=== PATIENT | female | born 1980 | race Caucasian/White ===

== ENCOUNTER → 2016-09-17 | Outpatient (CLI) | payer OTHER ==
[2016-06-09 03:30] VITALS: BP 100/59
[2016-09-17 15:05] LABS: RHEUMATOID FACTOR NEGATIVE (NEGATIVE)
[2016-09-23 06:16] LABS: ANTI-NUCLEAR ANTIBODY TEST None Detected (None Detected)
== END ==
LOC: LAB 14:15
PROVIDERS: ATTEND Family Medicine
DX: M25.50 Pain in unspecified joint (principal); Z82.61 Family history of arthritis
CPT/HCPCS: 36415; 86308; 86430

== ENCOUNTER 2017-08-14 16:16 | Emergency (ER) | payer OTHER ==
[2017-08-14 16:23] VITALS: BMI 32.4
--- NOTE | 2017-08-14 19:59 | DR.GENAD ---
HPI - PCP Primary Care Physician: ARLEN ZAFAR - Complaint/Symptoms Chief Complaint Doctors Comments: 2 to 3 weeks of paresthesia both lower extremities. She has had these symptoms in both upper extremities also. She sees a neurologist in [place] and she has had the upper exts. EMGs and NCS done about 2 months ago. She has an upcoming neurology f/u in next 11 to 2 weeks. The C/P is non radiatin and there is no other symptoms associated with that. Another complais is swelling to are hands. Chief Complaint:: PT C/O SWELLING TO HER HANDS AND FEET AND HAVING, SPOTS IN HER VISION AND CP.. Self Treatment fo Chief Complaint: PT STATES " I HAVE A HX OF ANXIETY:,. - Nurses notes reviewed Nurses Notes Review: Yes - Source History Provided: Patient - Mode of Arrival Mode of Arrival: Ambulatory - Timing Onset of Chief Complaint: 08/13/17 PMH - PMH Past Medical History: Yes Past Medical History: Anxiety, Depression Past Medical History Comment: FIBRO, RESTLESSLEG, BIPOLAR, DEPRESSION, ANXIETY, Past Surgical History: Yes Surgical History: Appendectomy, Hysterectomy, Ortho Surgery Past Surgical History Comment: KNEE SURGERY , BLADDER - Family History History of Family Medical Conditions: Yes Family Medical History: Cancer, MS, Heart Failure, Hypertension - Social History Does patient currently use any type of tobacco product: Yes Have you used tobacco products in the last 12 months: Yes Type of Tobacco Use: Cigarettes How many years tobacco product used: 3 Does any household member use tobacco: No Alcohol Use: None Do you use any recreational Drugs:: No Lives With: Family Lives Where: Home - infectious screening In the last 2 months have you had wt loss of >10#?: NO Have you had fever, night sweats or hemotysis?: No Have you traveled outside the country in the last 6 months?: No Isolation: Standard ROS - Review of Systems Constitutional: No Symptoms Reported Eyes: No Symptoms Reported ENTM: No Symptoms Reported Respiratoy: No Symptoms Reported Cardiovascular: No Symptoms Reported Gastrointestinal/Abdominal: No Symptoms Reported Genitourinary: No Symptoms Reported Neurological: Tingling Musculoskeletal: No Symptoms Reported Integumentary: No Symptoms Reported Hematologic/Lymphatic: No Symptoms Reported Endocrine: No Symptoms Reported Psychiatric: No Symptoms Reported PE - Vital Signs Vitals: Temperature 97.6 F Pulse Rate 75 Respiratory Rate 18 Blood Pressure [Right Arm] 100/59 Blood Pressure 123/77 O2 Sat by Pulse Oximetry 100 - General Limitations: No Limitations General Appearance: Alert, In No Apparent Distress - Head Head Exam: Normal Inspection - Eyes Eye exam: Normal Appearance - ENT ENT Exam: Normal Exam - Neck Neck Exam: Normal Inspection - Chest Chest Inspection: Normal Inspection - Respiratory Respiratory Exam: Normal Lung Sounds Bilat - Cardiovascular Cardiovascular Exam: Regular Rate, Normal Rhythm, +S1, +S2 - Abdominal Exam Abdominal Exam: Normal Inspection, Normal Bowel Sounds, Soft - Extremities Extremities Exam: Normal Inspection, Full ROM - Back Back Exam: Normal Inspection - Neurologic Neurological Exam: Alert, Oriented X3 - Psychiatric Psychiatric Exam: Normal Affect, Normal Mood - Skin Skin Exam: Warm, Dry, Intact, Normal Color Course - Education/Counseling Education/Counseling: Patient, Family, Education, Counseling Educated On: Treatment, Diagnosis, Prognosis, Needs for Follow Up (She already is on Hyrocodone, max doses of Cymbalta and Neurontin. Barring surgical interventions i defer her to her neurology for follow up. ) ROR - Labs Reviewed Laboratory: Creatine Kinase 50 Units/L (26-192) 08/14/17 19:59 CK-MB (CK-2) < 1.0 ng/mL (0-4.0) 08/14/17 19:59 CK/CKMB % Calc 2.0 % (<4) 08/14/17 19:59 Troponin I < 0.02 ng/mL (0-1.5) 08/14/17 19:59 TSH 3rd Generation 0.711 uIU/mL (0.358-3.74) 08/14/17 19:59 - Diagnosis Discharge Problem: Paresthesia and pain of extremity - Discharge Plan Disposition: 01 HOME, SELF-CARE Condition: Stable - Follow ups/Referrals Follow ups/Referrals: GARY MCKINLEY [Primary Care Provider] - 3 days - Instructions
[2017-08-14 20:32] LABS: CREATINE KINASE 50 Units/L (26-192); CREATINE KINASE MB < 1.0 ng/mL (0-4.0); TROPONIN I < 0.02 ng/mL (0-1.5); TSH (3RD GENERATION) 0.711 uIU/mL (0.358-3.74)
[2017-08-14 21:33] VITALS: BP 124/79
== END 2017-08-14 21:32 | disposition home or self-care (01) ==
LOC: ER 16:36
DX: R20.2 Paresthesia of skin (principal)
CPT/HCPCS: 36415; 82550; 82553; 84443; 84484; 99282

== ENCOUNTER → 2017-09-11 | Outpatient (CLI) | payer OTHER ==
[2017-08-14 21:33] VITALS: BP 124/79
--- NOTE | 2017-09-11 15:00 | RAD ---
Examination: Left shoulder, three views History: Left shoulder pain Findings: There is no evidence for fracture, bone destruction or significant arthropathy. The soft ti ssues are unremarkable. Impression: No acute or significant findings. Reported By:
--- NOTE | 2017-09-11 15:01 | RAD ---
HISTORY: Left knee pain Study: Three views left knee Comparison: June 09, 2016 Findings: There is no acute fracture or dislocation. Three compression screws project over the tibial tuberosit y. There is no periprosthetic lucency to suggest acute or chronic hardware failure. There is no effus ion. IMPRESSION: Stable exam without acute bony radiographic abnormality Reported By:
--- NOTE | 2017-09-11 15:10 | RAD ---
HISTORY: Right hip pain Study: Three views right hip Comparison: August 27, 2015 Findings: There is no acute fracture or dislocation. No destructive osseous lesions are seen. No significant DJ D is noted. IMPRESSION: Negative right hip examination. Reported By:
== END ==
LOC: RAD 14:16
PROVIDERS: ATTEND Family Medicine
DX: M25.562 Pain in left knee (principal); M54.5 Low back pain
CPT/HCPCS: 73030; 73501; 73560

== ENCOUNTER 2017-10-01 19:01 | Emergency (ER) | payer OTHER ==
[2017-10-01 19:10] VITALS: BP 117/69; BMI 34.7
[2017-10-01] MEDS ORDERED: LR 1000 ML IV 1,000 ML IV ONE ×2 (19:16→19:36)
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
[2017-10-01 19:45] LABS: BILIRUBIN,URINE 1+ (NEGATIVE); BLOOD/HEMOGLOBIN,URINE 2+ (NEGATIVE); GLUCOSE, URINE NEGATIVE (NEGATIVE); KETONES,URINE 2+ (NEGATIVE); LEUKOCYTE ESTERASE ,URINE 3+ (NEGATIVE); NITRITES,URINE NEGATIVE (NEGATIVE); PROTEIN,URINE 2+ (NEGATIVE); UROBILINOGEN,URINE 2+ (NORMAL)
[2017-10-01 19:49] LABS: BASOPHILS # (AUTO) 0.1 X10^3/uL (0.0-0.1); BASOPHILS % (AUTO) 0.6 % (0.2-1.0); EOSINOPHILS # (AUTO) 0.1 x10^3/uL (0.0-0.2); EOSINOPHILS % (AUTO) 1.1 % (0.9-2.9); HEMATOCRIT 42.6 % (36.0-47.0); HEMOGLOBIN 15.1 g/dL (12.0-16.0); LYMPHOCYTES # (AUTO) 2.4 X10^3/uL (1.3-2.9); LYMPHOCYTES % (AUTO) 25.2 % (21.0-51.0); MEAN CORPUSCULAR HEMOGLOBIN 32.3 pg (27.0-34.0); MEAN CORPUSCULAR HGB CONC 35.5 g/dL (33.0-35.0); MEAN PLATELET VOLUME 10.2 fL (7.4-11.0); MONOCYTES # (AUTO) 0.8 x10^3/uL (0.3-0.8); MONOCYTES % (AUTO) 7.8 % (0.0-13.0); NEUTROPHILS # (AUTO) 6.3 x10^3/uL (2.2-4.8); NEUTROPHILS % (AUTO) 65.3 % (42.0-75.0); PLATELET COUNT 244 X10^3/uL (150.0-450.0); RED BLOOD COUNT 4.68 X10^6/uL (3.5-5.4); RED CELL DISTRIBUTION WIDTH 12.1 % (11.6-16.5); WHITE BLOOD COUNT 9.6 X10^3/uL (3.6-10.0)
[2017-10-01 19:51] LABS: APPEARANCE,URINE SLIGHTLY HAZY (CLEAR); BACTERIA,URINE 1+ /HPF (NEGATIVE); COLOR,URINE YELLOW (YELLOW); MUCUS,URINE FEW /HPF (NEGATIVE); SQUAMOUS EPITHELIAL CELL,UR FEW /HPF (NEGATIVE)
[2017-10-01 19:53] LABS: ALANINE AMINOTRANSFERASE 33 Units/L (12-78); ALBUMIN 4.6 g/dL (3.4-5.0); ALKALINE PHOSPHATASE 97 Units/L (46-116); ASPARTATE AMINO TRANSFERASE 19 Units/L (15-37); BLOOD UREA NITROGEN 15 mg/dL (7-18); CALCIUM 9.3 mg/dL (8.5-10.1); CARBON DIOXIDE 23.7 mmol/L (21-32); CHLORIDE 102 mmol/L (98-107); CREATININE 0.98 mg/dL (0.55-1.02); SODIUM 141 mmol/L (136-145); TOTAL PROTEIN 8.8 g/dL (6.4-8.2); eGFR BLACK RACES > 60 (>60); eGFR NON BLACK RACES > 60 (>60)
[2017-10-01] MEDS ORDERED: ZOFRAN INJ 4 MG VIAL IVP ONE (19:54)
[2017-10-01] MEDS ORDERED: ZOFRAN INJ 4 MG VIAL ONE (20:18)
[2017-10-01] MEDS ORDERED: BACTRIM DS TAB PO ONE ×2 (20:22→20:31)
== END 2017-10-01 20:34 | disposition home or self-care (01) ==
LOC: ER 19:12
DX: N30.01 Acute cystitis with hematuria (principal)
CPT/HCPCS: 36415; 72125; 72131; 80053; 81001; 82607; 82728; 82746; 82784; 83540; 83550; 84165; 84439; 84443; 85025; 85045; 85652; 86140; 86308; 86430; 87086; 87651; 96365; 96374; 99283; A4222; J2405; J7120

== ENCOUNTER → 2017-10-01 | Outpatient (CLI) | payer OTHER ==
[2017-10-01 15:17] LABS: BASOPHILS # (AUTO) 0.1 X10^3/uL (0.0-0.1); BASOPHILS % (AUTO) 0.7 % (0.2-1.0); EOSINOPHILS # (AUTO) 0.1 x10^3/uL (0.0-0.2); EOSINOPHILS % (AUTO) 1.4 % (0.9-2.9); HEMATOCRIT 42.6 % (36.0-47.0); LYMPHOCYTES # (AUTO) 2.5 X10^3/uL (1.3-2.9); LYMPHOCYTES % (AUTO) 29.3 % (21.0-51.0); MEAN CORPUSCULAR HEMOGLOBIN 31.9 pg (27.0-34.0); MEAN CORPUSCULAR HGB CONC 35.3 g/dL (33.0-35.0); MEAN CORPUSCULAR VOLUME 90.5 fL (80.0-100.0); MEAN PLATELET VOLUME 10.1 fL (7.4-11.0); MONOCYTES # (AUTO) 0.7 x10^3/uL (0.3-0.8); MONOCYTES % (AUTO) 8.1 % (0.0-13.0); NEUTROPHILS # (AUTO) 5.2 x10^3/uL (2.2-4.8); NEUTROPHILS % (AUTO) 60.5 % (42.0-75.0); PLATELET COUNT 263 X10^3/uL (150.0-450.0); RED BLOOD COUNT 4.71 X10^6/uL (3.5-5.4); RED CELL DISTRIBUTION WIDTH 11.9 % (11.6-16.5); RETICULOCYTE % 1.44 % (0.8-2.2); WHITE BLOOD COUNT 8.6 X10^3/uL (3.6-10.0)
[2017-10-01 15:30] LABS: C-REACTIVE PROTEIN 5.3 mg/L (0-3.0); FREE T4 (FREE THYROXINE) 1.05 ng/dL (0.76-1.46); RHEUMATOID FACTOR NEGATIVE (NEGATIVE); TSH (3RD GENERATION) 0.715 uIU/mL (0.358-3.74)
[2017-10-01 16:32] LABS: ERYTHROCYTE SEDIMENTATION RATE 18 MM/HOUR (0-20)
--- NOTE | 2017-10-01 16:34 | CT ---
Indication: Right hip pain. Exam: CT scan lumbar spine without contrast. Technique: Axial spiral images were obtained from T11 through the lower sacrum and reconstructed in t he axial plane at 2 mm intervals with coronal and sagittal multiplanar reconstructions. Findings: The lumbar vertebra are well aligned. There is mild disc space narrowing throughout. No fra cture or subluxation is seen. There are no pars defects seen. There is a minimal central disc bulge a t L4-5. There are mild hypertrophic changes of the facets throughout with no significant spinal steno sis. The paravertebral soft tissues are normal. The visualize sacrum and SI joints are unremarkable. Impression: Mild degenerative disc space narrowing throughout with no acute abnormality seen. Small central disc bulge at L4-5 Mild osteoarthritic changes of the facet throughout with no significant spinal stenosis. Reported By:
--- NOTE | 2017-10-01 16:45 | CT ---
Indication: Right arm pain Exam: CT cervical spine without contrast. Technique: Axial spiral images were obtained from the skull base through T2 and reconstructed in the axial plane with coronal and sagittal multiplanar reconstructions. Findings: The cervical vertebra are well aligned. There is mild disc space narrowing throughout the l ower cervical region. No fracture or subluxation is seen. The posterior elements are intact. The prev ertebral soft tissues are normal. The atlantoaxial joint is normal. The lung apices are clear. There is small disc osteophyte complex at C5-6 causing mild dural sac effacement. The paravertebral soft ti ssues are normal. The neural foramina clear throughout. Impression: Mild degenerative disc changes throughout the lower cervical spine with no acute abnormality seen. Small disc osteophyte complex at C5-6. Suggest MRI for further evaluation of the disc spaces, if pat cated clinically. Reported By:
[2017-10-05 08:46] LABS: IMMUNOGLOBULIN M 163 mg/dL (35-263)
[2017-10-05 08:47] LABS: ANTI-NUCLEAR ANTIBODY TEST None Detected (None Detected)
[2017-10-05 23:04] LABS: ALBUMIN (SPEP) 5.27 g/dL (3.75-5.01); ALPHA-1 (SPEP) 0.37 g/dL (0.19-0.46); ALPHA-2 (SPEP) 0.93 g/dL (0.48-1.05); GAMMA (SPEP) 1.48 g/dL (0.62-1.51)
== END | disposition home or self-care (01) | DRG 74 ==
LOC: RAD 14:29
PROVIDERS: ATTEND Psychiatry & Neurology Neurology
DX: G60.8 Other hereditary and idiopathic neuropathies (principal); M79.604 Pain in right leg; M79.605 Pain in left leg; G83.21 Monoplegia of upper limb affecting right dominant side; R79.82 Elevated C-reactive protein (CRP); M25.78 Osteophyte, vertebrae; M51.26 Other intervertebral disc displacement, lumbar region
CPT/HCPCS: 36415; 72125; 72131; 82607; 82728; 82746; 82784; 83540; 83550; 84165; 84439; 84443; 85025; 85045; 85652; 86140; 86308; 86430